=== PATIENT | female | born 1965 | race Caucasian/White ===

== ENCOUNTER → 2017-08-09 | Outpatient (REF) | payer OTHER | LOC: M SFHCWAGY 14:48 | PROVIDERS: ATTEND Nurse Practitioner Women's Health | DX: Z12.4 Encounter for screening for malignant neoplasm of cervix (principal); N95.2 Postmenopausal atrophic vaginitis ==

== ENCOUNTER → 2017-08-09 | Outpatient (CLI) | payer BC ==
--- NOTE | 2017-08-09 15:40 | REPMRS ---
Patient History The patient states she had a clinical breast exam in 08/2017. Patient is nulliparous. Family history of breast cancer in mother at age 77. Digital Woman Screen Mammo: August 09, 2017 - Exam #: [id number] Bilateral CC and MLO view(s) were taken. Technologist: Christelle Pascual, Technologist Prior study comparison: August 02, 2016, digital woman screen mammo performed at [facility]. July 14, 2015, digital woman screen mammo performed at [facility]. 2013, digital bilateral screening mammo, performed at [facility]. FINDINGS: The breast tissue is heterogeneously dense. This may lower the sensitivity of mammography. There is stable lymph node again noted in the right upper outer quadrant. There is a moderate amount of heterogeneously dense fibroglandular tissue which is fairly symmetric. There is no interval development of dominant mass, architectural distortion, or clustered microcalcification typical of malignancy. There has been no change in the appearance of the mammogram from the prior studies. ASSESSMENT: BI-RADS/ACR category 2 mammogram. Benign finding(s). Recommendation Breast MRI of both breasts in 6 months. Routine screening mammogram of both breasts in 1 year (for women over age 40). This patient's Lifetime Breast Cancer RIsk is estimated at 23 %.Annual screening Breast MRI scanniing is recommended for patient's whose lifetime risk assessment is over 20%. This mammogram was interpreted with the aid of an FDA-approved computer-aided dectection system. Electronically Signed By: Satnam Dykes MD 08/09/17 5905
== END ==
LOC: M WHC 14:38
PROVIDERS: ATTEND Nurse Practitioner Women's Health
DX: Z12.31 Encounter for screening mammogram for malignant neoplasm of breast (principal)

== ENCOUNTER → 2018-05-19 | Outpatient (CLI) | payer OTHER ==
[2018-05-23 00:37] LABS: HERPES ZOSTER, VARICELLA IgM <0.91 index (0.00-0.90)
[2018-05-23 00:37] LABS: HERPES ZOSTER, VARICELLA IgG 353 index (Immune >165)
== END ==
LOC: M WUC 18:34
DX: S00.86XA Insect bite (nonvenomous) of other part of head, initial encounter (principal); W57.XXXA Bitten or stung by nonvenomous insect and other nonvenomous arthropods, initial encounter; Y92.9 Unspecified place or not applicable

== ENCOUNTER → 2018-08-13 | Outpatient (CLI) | payer BC | LOC: M WHC 15:02 | DX: Z12.31 Encounter for screening mammogram for malignant neoplasm of breast (principal); N60.31 Fibrosclerosis of right breast; N60.32 Fibrosclerosis of left breast; Z80.3 Family history of malignant neoplasm of breast | CPT/HCPCS: 77067 ==

== ENCOUNTER → 2019-05-10 | Outpatient (REF) | payer OTHER ==
[2019-05-10 22:31] LABS: APPEARANCE, URINE MANUAL CLOUDY (CLEAR); COLOR, URINE MANUAL RED (YELLOW)
[2019-05-10 22:32] LABS: BILIRUBIN, URINE MANUAL NEGATIVE (NEGATIVE); GLUCOSE, URINE (UA) MANUAL NEGATIVE (NEGATIVE); KETONE, URINE MANUAL NEGATIVE (NEGATIVE); NITRITE, URINE MANUAL POSITIVE (NEGATIVE); PROTEIN, URINE MANUAL 3+ mg/dL (NEGATIVE); UROBILINOGEN, URINE MANUAL NORMAL (NORMAL)
[2019-05-10 22:33] LABS: BLOOD URINE MANUAL POSITIVE (NEGATIVE); LEUKOCYTE ESTERASE, URINE MAN POSITIVE (NEGATIVE)
[2019-05-10 22:34] LABS: HYALINE CAST, URINE NONE SEEN /lpf (0-1); RBC, URINE TNTC /hpf (0-3); SQUAMOUS EPITHELIAL CELL URINE SMALL AMOUNT /hpf (SMALL AMT)
[2019-05-10 22:35] LABS: BACTERIA, URINE SMALL AMOUNT
== END ==
LOC: M LAB REF 09:11
PROVIDERS: ATTEND Physician Assistant Medical
DX: N39.0 Urinary tract infection, site not specified (principal)

== ENCOUNTER → 2019-08-14 | Outpatient (CLI) | payer BC ==
--- NOTE | 2019-08-14 16:49 | REPMRS ---
Patient History The patient states she had a clinical breast exam in 08/2019. Family history of breast cancer at age 77 in mother. No Hormone Replacement Therapy Digital Woman Screen Mammo: August 14, 2019 - Exam #: [id number] Bilateral CC and MLO view(s) were taken. Technologist: Kimmie Dai Technologist Prior study comparison: August 13, 2018, bilateral digital woman screen mammo performed at [facility]. August 09, 2017, digital woman screen mammo performed at [facility]. August 02, 2016, digital woman screen mammo performed at [facility]. FINDINGS: The breast tissue is heterogeneously dense. This may lower the sensitivity of mammography. There is a moderate amount of heterogeneously dense fibroglandular tissue which is fairly symmetric. There is no interval development of dominant mass, architectural distortion, or grouped microcalcification typical of malignancy. There has been no change in the appearance of the mammogram from the prior studies. 3-D tomosynthesis shows no additional findings. Assessment: BI-RADS/ACR category 1 mammogram. Negative Mammogram. Recommendation Breast MRI of both breasts in 6 months. Routine screening mammogram of both breasts in 1 year (for women over age 40). This patient's Lifetime Breast Cancer RIsk is estimated at 23.9 %. Annual screening Breast MRI scanniing is recommended for patient's whose lifetime risk assessment is over 20%. This mammogram was interpreted with the aid of an FDA-approved computer-aided dectection system. Electronically Signed By: Satnam Dykes MD 08/14/19 [id number]
== END ==
LOC: M WHC 15:05
PROVIDERS: ATTEND Nurse Practitioner Women's Health
DX: Z12.31 Encounter for screening mammogram for malignant neoplasm of breast (principal); Z80.3 Family history of malignant neoplasm of breast

== ENCOUNTER → 2019-10-05 | Outpatient (CLI) | payer BC, OTHER ==
[~2019-10-05] MED LIST: TRAV04OPD OU
--- NOTE | 2019-10-05 15:57 | ECGEPIP ---
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
== END ==
LOC: M EKG 13:51
PROVIDERS: ATTEND Anesthesiology
DX: Z01.810 Encounter for preprocedural cardiovascular examination (principal)

== ENCOUNTER 2019-10-08 05:50 | Day surgery (SDC) | payer BC, OTHER ==
[~2019-10-08] VITALS: Ht 162.6 cm; Wt 52.5 kg
[2019-10-08] MEDS ORDERED: ceFAZolin SOD 2 GM in IV 1 EA IV ONE (06:00)
[2019-10-08] MEDS ORDERED: LR 1,000 ML IV ONE (06:00)
[2019-10-08 06:20] LABS: HEMATOCRIT 41.9 % (36.0-47.0); HEMOGLOBIN 13.8 g/dl (12.0-15.5); MEAN CORPUSCULAR HEMOGLOBIN 31.2 pg (27.0-33.0); MEAN CORPUSCULAR HGB CONC 32.9 g/dl (32.0-36.5); MEAN CORPUSCULAR VOLUME 94.8 fl (80.0-96.0); PLATELET COUNT, AUTOMATED 346 10^3/uL (150-450); RED BLOOD COUNT 4.42 10^6/uL (4.00-5.40); WHITE BLOOD COUNT 4.2 10^3/uL (4.0-10.0)
[2019-10-08] MEDS ORDERED: METHYLENE BLUE 0.5% (5MG/ML) 10 ML AMP (PROVAYBLUE)(Q9968 PER 1MG) As Ordered ONE (07:08)
[2019-10-08] MEDS ORDERED: LACRILUBE (AKWA TEARS) OPHTH OINT 3.5 GM As Ordered ONE (07:13)
[2019-10-08] MEDS ORDERED: PROPOFOL 200 MG/20 ML VIAL As Ordered ONE (07:16)
[2019-10-08] MEDS ORDERED: LIDOCAINE 2% INJ 100 MG/5 ML SDV (FOR ANES.) As Ordered ONE (07:16)
[2019-10-08] MEDS ORDERED: ROCURONIUM BROMIDE 50 MG/5 ML VIAL As Ordered ONE ×2 (07:16→09:00)
[2019-10-08] MEDS ORDERED: MIDAZOLAM INJ 2 MG/2 ML VIAL (J2250) As Ordered ONE (07:17)
[2019-10-08] MEDS ORDERED: fentaNYL 100 MCG/2 ML INJECTION (J3010) As Ordered ONE (07:17)
[2019-10-08] MEDS ORDERED: dexameTHASONE 4 MG/ML 1ML VIAL (J1100) As Ordered ONE (07:17)
[2019-10-08] MEDS ORDERED: METOCLOPRAMIDE INJ 10MG/2ML VIAL (J2765) As Ordered ONE (07:17)
[2019-10-08] MEDS ORDERED: ONDANSETRON 4MG/2ML VIAL (J2405) As Ordered ONE (07:17)
[2019-10-08] MEDS ORDERED: SCOPOLAMINE 1MG TRANSDERMAL PATCH As Ordered ONE (07:29)
[2019-10-08] MEDS ORDERED: SCOPOLAMINE 1MG TRANSDERMAL PATCH TOP ONE (07:30)
[2019-10-08] MEDS ORDERED: HYDROmorphone HCL 2 MG/ML 1ML VIAL (J1170) As Ordered ONE (08:03)
[2019-10-08] MEDS ORDERED: KETOROLAC 60 MG/2 ML VIAL (J1885) As Ordered ONE (09:05)
[2019-10-08] MEDS ORDERED: SUGAMMADEX SODIUM 500 MG/5 ML VIAL (BRIDION) As Ordered ONE (09:05)
[2019-10-08] MEDS ORDERED: ACETAMINOPHEN 1000MG 100ML IV BTL (OFIRMEV) (J0131 PER 10MG) As Ordered ONE (09:06)
[2019-10-08] MEDS ORDERED: ONDANSETRON 4MG/2ML VIAL (J2405) IV PRN (10:00)
[2019-10-08] MEDS ORDERED: METOCLOPRAMIDE INJ 10MG/2ML VIAL (J2765) IV PRN (10:00)
[2019-10-08] MEDS ORDERED: oxyCODONE 5MG TAB PO PRN (10:00)
[2019-10-08] MEDS ORDERED: MEPERIDINE INJ 25 MG/ML VIAL (J2175) IV PRN (10:00)
[2019-10-08] MEDS ORDERED: LR 1,000 ML IV SCH (10:00)
[2019-10-08] MEDS ORDERED: fentaNYL 100 MCG/2 ML INJECTION (J3010) IV PRN (10:00)
[2019-10-08] MEDS ORDERED: IBUPROFEN 600 MG TAB PO PRN (10:15)
[2019-10-08] MEDS ORDERED: NORCO, ANEXSIA 5/325MG TABLET (HYDROcodone/ACETAMINOPHEN) PO PRN (10:15)
[2019-10-08] MEDS: LR 1,000 ML IV SCH ×3 (10:15→22:56)
[2019-10-08 10:57] VITALS: BP 98/62
--- NOTE | 2019-10-08 11:03 | RO ---
DATE OF PROCEDURE: 10/08/2019 PREPROCEDURE DIAGNOSIS: Pain, tenderness, dyspareunia, fibroids. POSTPROCEDURE DIAGNOSIS: Pain, tenderness, dyspareunia, fibroids. PROCEDURE: Robotic assisted hysterectomy with bilateral salpingo-oophorectomy. SURGEON: Dr. Shanell Robles. TILTROTOR CREW CHIEF: KATIANA Mann ANESTHESIA: General endotracheal anesthesia. DESCRIPTION OF PROCEDURE: Diandra was brought to the operating room where sufficient general endotracheal anesthesia was induced. She was prepped, draped and positioned in the usual sterile fashion. A Feliciano with the ability to backfill was placed and then, with some effort, the uterine manipulator was placed. It should be noted that the smaller, the medium uterine manipulator for robotic was used and the blue cup was very, very difficult to place inside the vagina. Patient has a loss of vaginal caliber and a fairly small diameter there and so it was only with difficulty and some level of vaginal dilation that were able to place the blue cup in, which of course is needed for uterine manipulation. We then proceeded to the abdominal portion of the case. A transverse semilunar incision was made below the umbilicus. Sharp and blunt dissection were continued to the subcutaneous tissues to the level of the rectus fascia which was transversely incised, secured with 0 Vicryl retention sutures and the peritoneum entered under direct visualization with Small cannula then placed and CO2 insufflation undertaken. After adequate CO2 insufflation, the peritoneal cavity was visualized. There were normal shiny peritoneal surfaces throughout. There was no ascites, implants nor exudates. There was a marked distortion of the uterus as photographed with fibroid as large as this uterus, which was retroverted and had sounded to about 8. The fibroid, itself was, if anything, larger than the uterus corpus as clearly documented in the photographs. And of course, the uterus was highly distorted from this large lesion developing off it. The ovaries themselves and the tubes were normal in appearance. In this patient, we were readily able to tract the course of the ureters and avoid them. We placed the umbilical port, two left-sided, one right-side port in the usual fashion and of course the patient in Trendelenburg in the normal position, we moved to the corrections counselor work where the left infundibulopelvic ligament was isolated, cauterized and transected. The broad ligament and the mesentery ovary and tube carefully dissected through to the round ligament, which was also cauterized and transected. The dissection of the broad continued back towards the uterus developing the left anterior aspect of the bladder flap and posteriorly dropping the peritoneum away to let that ureter drop away down to the level of the uterosacral. Attention was then turned to the patient's right side, where similarly, the infundibulopelvic ligament was isolated, cauterized, transected. The dissection continued to the round, which was cauterized and transected. We confirmed with backfilling the location of the bladder as needed and completed the bladder flap dissection anteriorly and the dissection of the peritoneum posteriorly. There were some large impressive vessels as would be expected with this large fibroid. So after carefully identifying the vessels, the ureters, etc., and had the bladder flap away, we went ahead and cauterized these first on the right side making sure we had them well-cauterized and then went to the left side without cutting anything and cauterized on the left so that we had the back pressure down as well before we began this dissection. We were then readily able to see the cup, so we went ahead, starting on the left side, anterior through the lateral aspect until the posterior aspect, dissecting just above the insertion of the uterosacral so that we should have good support for this patient. Because of course, they were also re-incorporated in the cuff as is typical. We started the dissection above there insertion and having gotten what we could on the left side, we went ahead and re-manipulated the uterus. We had vision and access to where we had already cauterized the vessels. We cauterized them again to make sure that we had them well controlled and went ahead and transected them cauterizing the deep vessels as needed as we dissected through the surface layers and then completed the colpotomy so that the uterus, with the attached ovaries and tubes, was free of the patient. We very good control of the blood supply at the angles and we went ahead and removed the uterus. It took some effort to take the blue cup out as was expected because it is easier to place in than it is to remove, especially when you have a loss of vaginal caliber. So we were very careful in our efforts not to injure the vaginal tissues and to just slowly work our way out with the blue cup, then the green one. Then we used single tooth tenacula on the uterus, removed the manipulator so that we could manipulate the uterus and we had delivered the uterus into the vaginal but without the fibroid and we had to turn the uterus and twist it about to position it so we could get just the uterus into the vagina and then carefully deliver that out so that we could angle and have the cervix delivered so that we could then angle the uterus further so that we could get the fibroid into the vagina. This did take some effort partly due to the enlarged uterus but also partly due to the patient's anatomy. This uterus is under 250 grams just looking at it but of course, anatomy impacts this. Once we had the uterus delivered, we could not leave it in the vagina as is typical. We went ahead and took it out and then used a lap to maintain hemostasis and then I went back to the robot corrections counselor because I had to remove the uterus and closed the vaginal cuff with overlying running stitch of the self-locking suture. I was careful with the V-Loc to incorporate the uterosacral and re-support the vagina. We had good hemostasis and approximation at the completion of this closure. The procedure was then ended with instruments removed. The CO2 allowed to escape the abdomen. The umbilical wound was closed at the fascial layer with 0 Vicryl retention sutures and then #3-0 Vicryl was used at the skin and the subcutaneous stitch of all four wounds. Dry sterile dressing was then applied. ESTIMATED BLOOD LOSS: About 50 mL. FLUID REPLACEMENT: Crystalloid. COMPLICATIONS: None. CONDITION AND DISPOSITION: Diandra tolerated the procedure well and was recovering in the recovery room in good condition.
[2019-10-08 11:30] VITALS: BP 96/58
[2019-10-08 12:00] VITALS: BP 92/55
[2019-10-08 14:10] VITALS: BP 104/53
[2019-10-08 16:00] VITALS: BP 92/60
[2019-10-08 20:46] VITALS: BP 100/54
[2019-10-09 02:30] VITALS: BP 115/55
[2019-10-09 06:01] VITALS: BP 104/58
[2019-10-09] MEDS: LR 1,000 ML IV SCH (06:54)
[2019-10-09 10:00] VITALS: BP 100/75
== END 2019-10-09 11:20 | disposition home or self-care (01) ==
LOC: M SDC 05:50 → M MS5PR 10:35 → M SDC 10-09 11:20
PROVIDERS: ATTEND Obstetrics & Gynecology
DX: N71.9 Inflammatory disease of uterus, unspecified (principal); D25.1 Intramural leiomyoma of uterus; D25.2 Subserosal leiomyoma of uterus; H40.009 Preglaucoma, unspecified, unspecified eye; Z87.440 Personal history of urinary (tract) infections; Z88.2 Allergy status to sulfonamides; Z79.899 Other long term (current) drug therapy
CPT/HCPCS: 36415; 58552; 85027; 86850; 86900; 86901; 88307; 96360; 96361; J0131; J0690; J1100; J1170; J1885; J2250; J2405; J2765; J3010; Q9968

== ENCOUNTER → 2020-08-16 | Outpatient (CLI) | payer BC ==
--- NOTE | 2020-08-16 16:27 | REPMRS ---
Patient History The patient states she had a clinical breast exam in 08/2020. Family history of breast cancer at age 77 in mother. No Hormone Replacement Therapy Digital Woman Screen Mammo: August 16, 2020 - Exam #: [id number] Bilateral CC and MLO view(s) were taken. Technologist: Christelle Pascual, Technologist Prior study comparison: August 14, 2019, bilateral digital woman screen mammo performed at [facility]. August 13, 2018, bilateral digital woman screen mammo performed at [facility]. August 09, 2017, digital woman screen mammo performed at [facility]. FINDINGS: The breast tissue is heterogeneously dense. This may lower the sensitivity of mammography. The Volpara volumetric breast density category is: C. There is a moderate amount of heterogeneously dense fibroglandular tissue which is fairly symmetric. There is no interval development of dominant mass, architectural distortion, or grouped microcalcification typical of malignancy. There has been no change in the appearance of the mammogram from the prior studies. 3-D tomosynthesis shows no additional findings. Assessment: BI-RADS/ACR category 1 mammogram. Negative Mammogram. Recommendation Breast MRI of both breasts in 6 months. Routine screening mammogram of both breasts in 1 year (for women over age 40). This patient's Lifetime Breast Cancer RIsk is estimated at 23.4 %. Annual screening Breast MRI scanniing is recommended for patient's whose lifetime risk assessment is over 20%. This mammogram was interpreted with the aid of an FDA-approved computer-aided dectection system. Electronically Signed By: Satnam Dykes MD 08/16/20 [id number]
== END ==
LOC: M WHC 15:18
PROVIDERS: ATTEND Nurse Practitioner Women's Health
DX: Z12.31 Encounter for screening mammogram for malignant neoplasm of breast (principal); Z80.3 Family history of malignant neoplasm of breast

== ENCOUNTER → 2021-03-20 | Outpatient (CLI) | payer BC, OTHER ==
[~2021-03-20] MED LIST changes: +PROHANCE 279.3MG/ML 5ML VIAL As Ordered ONE
--- NOTE | 2021-03-21 08:55 | REP ---
INDICATION: DENSE BREAST TISSUE. COMPARISON: MRI 02/08/2020, mammogram 08/16/2020. TECHNIQUE: Three Julia MRI imaging was performed with a dedicated breast coil. Axial, coronal, and sagittal T1 and T2 weighted scans were obtained with and without fat saturation in the usual fashion. The study includes dynamically acquired post gadolinium-enhanced imaging with image subtraction. Maximum intensity projection and multi planar reformation imaging is included as well. This study is interpreted with the aid of Ebix, an FDA approved computer aided detection (CAD) software program, on a dedicated breast MRI workstation. The gadolinium enhancement dose is 10 mL of intravenous ProHance. FINDINGS: There is moderate fibroglandular tissue bilaterally. There is no axillary adenopathy. No significant cystic changes seen in either breast. There is mild background parenchymal enhancement. There is no suspicious enhancing mass or morphologic abnormality. There is a benign hemangioma again seen at the dome of the liver. This measures about 1 cm in diameter. IMPRESSION: BI-RADS category 1, negative bilateral breast MRI. No suspicious enhancing mass or morphologic abnormality. Yearly supplemental screening MRI of the breasts is recommended for patients with an elevated lifetime risk of breast cancer of 20% or greater, in addition to annual screening mammography, staggered every 6 months. <Electronically signed by Zev Griffin > 03/21/21 [id number]
== END ==
LOC: M RAD 15:25
PROVIDERS: ATTEND Nurse Practitioner Women's Health
DX: Z91.89 Other specified personal risk factors, not elsewhere classified (principal); Z80.3 Family history of malignant neoplasm of breast

== ENCOUNTER → 2021-04-28 | Outpatient (REF) | payer OTHER ==
[~2021-04-28] MED LIST changes: -PROHANCE 279.3MG/ML 5ML VIAL As Ordered ONE
== END ==
LOC: M LAB REF 17:06
PROVIDERS: ATTEND Physician Assistant
DX: C44.509 Unspecified malignant neoplasm of skin of other part of trunk (principal)

== ENCOUNTER → 2021-07-07 | Outpatient (REF) | payer OTHER | LOC: M LAB REF 19:06 | PROVIDERS: ATTEND Dermatology | DX: C44.509 Unspecified malignant neoplasm of skin of other part of trunk (principal); L82.1 Other seborrheic keratosis ==

== ENCOUNTER → 2021-08-17 | Outpatient (CLI) | payer BC, OTHER ==
--- NOTE | 2021-08-17 16:25 | REPMRS ---
Patient History The patient states she had a clinical breast exam in August 2021. Patient is postmenopausal, has history of other cancer at age 56, and is nulliparous. Family history of breast cancer at age 77 in mother. No Hormone Replacement Therapy Tomosynthesis is performed. Volpara breast density is c. Patient states no breast complaints today. Patient has signed MRS History Sheet. Digital Woman Screen Mammo: August 17, 2021 - Exam #: [id number] Bilateral CC and MLO view(s) were taken. Technologist: Prudence Hair, Technologist Prior study comparison: August 16, 2020, bilateral digital woman screen mammo performed at [facility]. August 14, 2019, bilateral digital woman screen mammo performed at [facility]. FINDINGS: The breast tissue is heterogeneously dense. This may lower the sensitivity of mammography. There has been no change in the appearance of the mammogram from the prior studies. There is a moderate amount of residual fibroglandular tissue which is fairly symmetric. There is no interval development of dominant mass, areas of architectural distortion, or clustered microcalcification typical of malignancy. Assessment: BI-RADS/ACR category 1 mammogram. Negative Mammogram. Recommendation Routine screening mammogram in 1 year (for women over age 40). This mammogram was interpreted with the aid of an FDA-approved computer-aided dectection system. The Lifetime Breast Cancer Risk is estimated at 22.9%. Yearly supplemental screening MRI of the breasts is recommended for patients with an elevated lifetime risk of breast cancer of 20% or greater, in addition to annual screening mammography, staggered every 6 months. Electronically Signed By: Zev Griffin MD 08/17/21 [id number]
== END ==
LOC: M WHC 14:51
PROVIDERS: ATTEND Nurse Practitioner Women's Health
DX: Z12.31 Encounter for screening mammogram for malignant neoplasm of breast (principal)

== ENCOUNTER → 2022-08-20 | Outpatient (CLI) | payer BC, OTHER | LOC: M WHC 15:11 | PROVIDERS: ATTEND Nurse Practitioner Family | DX: Z12.31 Encounter for screening mammogram for malignant neoplasm of breast (principal) ==

== ENCOUNTER → 2023-02-22 | Outpatient (CLI) | payer BC, OTHER ==
[~2023-02-22] MED LIST changes: +PROHANCE 279.3MG/ML 5ML VIAL As Ordered ONE
== END ==
LOC: M RAD 15:21
PROVIDERS: ATTEND Nurse Practitioner Family
DX: Z80.3 Family history of malignant neoplasm of breast (principal); R92.2 Inconclusive mammogram
CPT/HCPCS: A9576; C8908

== ENCOUNTER → 2023-04-03 | Outpatient (CLI) | payer BC, OTHER | LOC: M RAD 14:28 | PROVIDERS: ATTEND Internal Medicine | DX: D18.03 Hemangioma of intra-abdominal structures (principal) ==

== ENCOUNTER → 2023-07-02 | Outpatient (CLI) | payer BC, OTHER ==
[~2023-07-02] MED LIST changes: -PROHANCE 279.3MG/ML 5ML VIAL As Ordered ONE
== END ==
LOC: M WUC 15:46
PROVIDERS: ATTEND Internal Medicine
DX: M41.34 Thoracogenic scoliosis, thoracic region (principal)

== ENCOUNTER → 2023-07-03 | Outpatient (REF) | payer BC, OTHER | LOC: M SFHCDERM 13:59 | PROVIDERS: ATTEND Physician Assistant | DX: I78.1 Nevus, non-neoplastic (principal) ==

== ENCOUNTER → 2023-08-21 | Outpatient (CLI) | payer BC, OTHER | LOC: M WHC 16:00 | PROVIDERS: ATTEND Internal Medicine | DX: Z12.31 Encounter for screening mammogram for malignant neoplasm of breast (principal) ==

== ENCOUNTER → 2023-11-20 | Outpatient (CLI) | payer BC, OTHER ==
[~2023-11-20] MED LIST changes: +E-Z-GAS II EFFERVESCENT PACKET (SODIUM BICARB./CITRIC ACID/SIMETHICONE) As Ordered ONE; +E-Z-HD 98% w/w 340GM SUSP BTL As Ordered ONE; +E-Z-PAQUE 96% w/w SUSP 176GM BTL As Ordered ONE
== END ==
LOC: M RAD 09:28
PROVIDERS: ATTEND Physician Assistant Medical
DX: R13.10 Dysphagia, unspecified (principal); R12 Heartburn; K21.9 Gastro-esophageal reflux disease without esophagitis; K22.89 Other specified disease of esophagus

== ENCOUNTER 2023-12-09 13:08 | Day surgery (SDC) | payer BC, OTHER ==
[~2023-12-09] VITALS: Ht 162.6 cm; Wt 51.6 kg
[~2023-12-09 13:08] MED LIST changes: -E-Z-GAS II EFFERVESCENT PACKET (SODIUM BICARB./CITRIC ACID/SIMETHICONE) As Ordered ONE; -E-Z-HD 98% w/w 340GM SUSP BTL As Ordered ONE; -E-Z-PAQUE 96% w/w SUSP 176GM BTL As Ordered ONE; +LIDOCAINE 2% 100MG/5ML SDV (FOR ANES.) As Ordered ONE; +propofoL 200 MG/20 ML VIAL As Ordered ONE
[2023-12-09] MEDS: NS 1,000 ML IV ONE (13:33)
[2023-12-09] MEDS ORDERED: fentaNYL 100 MCG/2 ML INJECTION As Ordered ONE (13:46)
[2023-12-09 14:11] VITALS: TEMP 97
[2023-12-09 14:25] VITALS: BP 101/58; O2SAT 96
== END 2023-12-09 14:33 | disposition home or self-care (01) ==
LOC: M OPP 13:08
PROVIDERS: ATTEND Internal Medicine Gastroenterology
DX: R13.10 Dysphagia, unspecified (principal); Z88.2 Allergy status to sulfonamides
CPT/HCPCS: 43239; 43450; 88305; J3010

== ENCOUNTER → 2024-04-23 | Outpatient (CLI) | payer BC ==
[~2024-04-23] MED LIST changes: -LIDOCAINE 2% 100MG/5ML SDV (FOR ANES.) As Ordered ONE; +PROHANCE 279.3MG/ML 5ML VIAL ONE; -propofoL 200 MG/20 ML VIAL As Ordered ONE
== END ==
LOC: M PLAIMG 14:35
PROVIDERS: ATTEND Internal Medicine
DX: Z15.01 Genetic susceptibility to malignant neoplasm of breast (principal)

== ENCOUNTER → 2024-11-03 | Outpatient (CLI) | payer BC ==
[~2024-11-03] MED LIST changes: -PROHANCE 279.3MG/ML 5ML VIAL ONE
== END ==
LOC: M WHC 14:27
PROVIDERS: ATTEND Internal Medicine
DX: Z12.31 Encounter for screening mammogram for malignant neoplasm of breast (principal)

== ENCOUNTER → 2024-12-23 | Outpatient (REF) | payer BC, OTHER ==
[2024-12-24 12:53] LABS: RNP ANTIBODY >8.0 POS AI (<1.0 NEG); SM ANTIBODY 2.5 POS AI (<1.0 NEG); SSA SJOGRENS A <1.0 NEG AI (<1.0 NEG); SSB SJOGRENS B <1.0 NEG AI (<1.0 NEG)
[2024-12-24 16:02] LABS: CYCLIC CITRULLINATED PEPTIDE < 16 UNITS (<20)
[2024-12-25 15:08] LABS: ANA PATTERN Nuclear, Speckled (NEGATIVE); ANA SCREEN, IFA POSITIVE (NEGATIVE); ANA TITER > OR = 1:1280 titer (<1:40)
[2024-12-26 19:26] LABS: LYME TOTAL ANTIBODY CIA <= 0.90 Index (<=0.90)
[2024-12-29 01:47] LABS: ANTI DS-DNA AB NEGATIVE (NEGATIVE)
== END ==
LOC: M LAB REF 13:03
PROVIDERS: ATTEND Internal Medicine
DX: M25.50 Pain in unspecified joint (principal); I73.00 Raynaud's syndrome without gangrene

== ENCOUNTER → 2025-03-12 | Outpatient (REF) | payer OTHER, BC ==
[2025-03-12 16:21] LABS: FERRITIN 143.2 NG/ML (7.3-270.7)
[2025-03-12 16:33] LABS: HEPATITIS B SURFACE ANTIGEN NEGATIVE (NEGATIVE)
[2025-03-12 16:53] LABS: HEPATITIS B CORE ANTIBODY IGM NEGATIVE (NEGATIVE); HEPATITIS C VIRUS ABY INDEX 0.14 INDEX (<0.8)
== END ==
LOC: M LAB REF 14:49
PROVIDERS: ATTEND Internal Medicine
DX: R74.01 Elevation of levels of liver transaminase levels (principal)

== ENCOUNTER → 2025-06-21 | Outpatient (CLI) | payer OTHER, BC | LOC: M WUC 13:05 | PROVIDERS: ATTEND Internal Medicine | DX: R06.02 Shortness of breath (principal); R05.9 Cough, unspecified ==

== ENCOUNTER → 2025-07-13 | Outpatient (CLI) | payer BC | LOC: M PLAIMG 07:32 | PROVIDERS: ATTEND Internal Medicine Rheumatology | DX: R06.02 Shortness of breath (principal) ==

== ENCOUNTER → 2025-07-21 | Outpatient (CLI) | payer BC | LOC: M CARPUL 07:37 | PROVIDERS: ATTEND Internal Medicine Rheumatology | DX: R06.02 Shortness of breath (principal) ==

== ENCOUNTER → 2025-08-11 | Outpatient (REF) | payer BC | LOC: M SFHCDERM 16:42 → M LAB REF 16:42 | PROVIDERS: ATTEND Physician Assistant | DX: T14.8XXA Other injury of unspecified body region, initial encounter (principal); W18.30XA Fall on same level, unspecified, initial encounter; Y92.009 Unspecified place in unspecified non-institutional (private) residence as the place of occurrence of the external cause ==

== ENCOUNTER → 2025-08-11 | Outpatient (CLI) | payer BC | LOC: M RAD 15:53 | PROVIDERS: ATTEND Physician Assistant | DX: R06.02 Shortness of breath (principal); M34.9 Systemic sclerosis, unspecified ==

== ENCOUNTER → 2025-10-07 | Outpatient (CLI) | payer BC ==
[~2025-10-07] MED LIST changes: +ISOVUE-370 76% 100 ML VIAL As Ordered ONE
== END ==
LOC: M RAD 13:06
PROVIDERS: ATTEND Internal Medicine Gastroenterology
DX: R63.4 Abnormal weight loss (principal); K90.9 Intestinal malabsorption, unspecified; M34.9 Systemic sclerosis, unspecified; R93.2 Abnormal findings on diagnostic imaging of liver and biliary tract
CPT/HCPCS: 74177; 82565; Q9967